=== PATIENT | male | born 1990 | race Caucasian/White ===

== ENCOUNTER 2017-12-04 10:22 | Emergency (ER) | payer OTHER ==
[2017-12-04 10:32] VITALS: BP 172/93
--- NOTE | 2017-12-04 10:37 | ER Document Report ---
HPI - HPI Patient complains to provider of: back pain Onset: Other - april 2017 Pain Level: 4 Context: 27 yo [employer] with chronic back pain since herniated disc L4-5, 2 surgeries by [facility] surgeon. He said he couldnt do anymore. sent to [place] for eval. due for surgery but sent to Dr Dang for 2nd opinion. was taking percocet 5mg #120 per month through October by [facility] surgeon. Dr dang prescribed Ultram which helped some. Pain radiates into left leg but no saddle anesthesia and able to walk. States he is NOT in withdrawal. Associated Symptoms: None Exacerbated by: Denies Relieved by: Denies - ROS ROS below otherwise negative: Yes Systems Reviewed and Negative: Yes All other systems reviewed and negative Past Medical History - General Information source: Patient - Social History Smoking Status: Unknown if Ever Smoked Frequency of alcohol use: None Drug Abuse: None Lives with: Family Family History: Reviewed & Not Pertinent - Medical History Medical History: Negative Surgical Hx: Negative Vertical Provider Document - CONSTITUTIONAL Agree With Documented VS: Yes Exam Limitations: No Limitations General Appearance: No Apparent Distress - INFECTION CONTROL TRAVEL OUTSIDE OF THE [place]. IN LAST 30 DAYS: No - BACK Back: Normal Inspection - MUSCULOSKELETAL/EXTREMETIES Musculoskeletal/Extremeties: MAEWAILYN - NEURO Level of Consciousness: Awake Motor/Sensory: No Motor Deficit, No Sensory Deficit Deep Tendon Reflexes: 2+ - brie ankle and patellar - DERM Integumentary: No Rash Course - Re-evaluation Re-evalutation: 12/04/17 11:05 I explained to the patient that he needs to establish with primary care for his pain medication., [facility] does not treat chronic back pain. He is active duty [employer]. He is scheduled for a fusion in [place]. He saw Dr. Dang the neurosurgeon here in [place] on November 18 for a second opinion. He was taking oxycodone up until November 05 he was given 60 by the neurosurgeon in [place]. He has had [address] Allen in [place] but is not going back to him anymore. The [place] controlled substance website showed that he was getting 60 oxycodone every week in September which was a second surgery, and 120 oxycodone in October. - Vital Signs Vital signs: Temp Pulse Resp BP Pulse Ox 98.4 F 108 H 16 172/93 H 98 12/04/17 10:28 12/04/17 10:28 12/04/17 10:28 12/04/17 10:28 12/04/17 10:28 Discharge - Discharge Clinical Impression: Chronic back pain Qualifiers: Back pain location: low back pain Back pain laterality: midline Sciatica presence: with sciatica Sciatica laterality: sciatica of left side Qualified Code(s): M54.42 - Lumbago with sciatica, left side Condition: Good Disposition: HOME, SELF-CARE Instructions: Chronic Back Pain ([facility]), Ultram ([facility]) Additional Instructions: See your sick call or someone within the system for continue pain medication. Return to the emergency room if you have any numbness or tingling in your groin or inability to walk. Prescriptions: Tramadol HCl [Ultram 50 mg Tablet] 50 mg PO ASDIR PRN #20 tablet PRN Reason: Forms: Return to Work
== END 2017-12-04 11:43 | disposition home or self-care (01) ==
LOC: ER 10:22
DX: G89.29 Other chronic pain (principal); M54.42 Lumbago with sciatica, left side; Z98.890 Other specified postprocedural states
CPT/HCPCS: 99283

== ENCOUNTER 2018-06-02 07:12 | Emergency (ER) | payer OTHER ==
[2018-06-02] MEDS ORDERED: THIAMINE HCL 100 MG, FOLIC ACID 1 MG in NORMAL SALINE 250 ML IV ONE (07:36)
[2018-06-02] MEDS ORDERED: ONDANSETRON HCL INJ/PF 4 MG/2 ML SDV IV ONE (07:36)
[2018-06-02 07:47] LABS: APPEARANCE,URINE CLOUDY; BILIRUBIN,URINE NEGATIVE (NEGATIVE); COLOR,URINE DARK YELLOW; GLUCOSE, URINE NEGATIVE (NEGATIVE); KETONES,URINE TRACE mg/dL (NEGATIVE); LEUKOCYTE ESTERASE,URINE NEGATIVE (NEGATIVE); NITRITE,URINE NEGATIVE (NEGATIVE); PROTEIN,URINE 100 mg/dL (NEGATIVE)
--- NOTE | 2018-06-02 07:58 | ER Document Report ---
ED General <ADAM SUTTON - Last Filed: 06/02/18 11:23> - General TRAVEL OUTSIDE OF THE U.[place]. IN LAST 30 DAYS: No <ODETTE HUMMEL - Last Filed: 06/02/18 11:30> - General Chief Complaint: Alcohol Withdrawl Stated Complaint: VOMITING Time Seen by Provider: 06/02/18 07:39 - HPI Notes: Patient is a 27-year-old male with a history of hypertension and alcohol abuse who presents to the ED requesting help with withdrawal symptoms and detoxing from alcohol. Patient states that his last drink was yesterday evening which included 2 shots and 4 beers. Patient states that he is very motivated to stop drinking and stemming from a back surgery when he was in pain and became depressed. He has never had any SI/HI. Patient states that over the last few days he has had abdominal cramping, nausea, vomiting, and diarrhea associated as he has had a decreased intake of his alcohol. He has also felt flushed and fidgety. Patient states that he is already contacted in AA clinic as well, but has not been eating or drinking much over the last few days which is what brought him to the emergency department. Patient states that he wants to be done with alcohol and states that he is not intoxicated at this time. Patient states that after retching hard several times, he noticed just a scant amount of blood-tinged in the emesis, but no copious amounts of blood and no melena or hematochezia. Patient states his abdominal pain comes and goes, but is usually generalized and does not radiate. Denies drug allergies. Patient states that he does not smoke. Denies any other drug abuse. No history of seizures. Denies any headache, fever, head injury, neck pain, changes in vision/speech/mentation/hearing, URI, sore throat, chest pain, palpitations, syncope, cough, shortness of breath, wheeze, dyspnea, urinary retention, dysuria, hematuria, loss of control of bowel or bladder, numbness/tingling, saddle anesthesia, muscle paralysis/weakness, or rash. (ODETTE HUMMEL) - Related Data Allergies/Adverse Reactions: No Known Allergies Allergy (Verified 06/02/18 07:23) Past Medical History - Social History Smoking Status: Never Smoker Family History: Reviewed & Not Pertinent Renal/ Medical History: Denies: Hx Peritoneal Dialysis Past Surgical History: Reports: Hx Orthopedic Surgery - back <ODETTE HUMMEL - Last Filed: 06/02/18 11:30> Review of Systems - Review of Systems -: Yes All other systems reviewed and negative <ODETTE HUMMEL - Last Filed: 06/02/18 11:30> Physical Exam <ODETTE HUMMEL - Last Filed: 06/02/18 11:30> - Vital signs Vitals: Temp Pulse Resp BP Pulse Ox 98.1 F 77 16 154/97 H 97 06/02/18 07:23 06/02/18 07:23 06/02/18 07:23 06/02/18 07:23 06/02/18 07:23 - Notes Notes: PHYSICAL EXAMINATION: GENERAL: Well-appearing, well-nourished and in no acute distress. A&Ox4. Answers questions appropriately. HEAD: Atraumatic, normocephalic. EYES: Pupils equal round and reactive to light, extraocular movements intact, sclera anicteric, conjunctiva are normal. No nystagmus. ENT: EAC clear b/l. TM's intact b/l without erythema, fluid, or perforation. Nares patent and without discharge. oropharynx clear without exudates. No tonsilar hypertrophy or erythema. Moist mucous membranes. No sinus tenderness. NECK: Normal range of motion, supple without lymphadenopathy LUNGS: LLL mild wheeze, clear b/l otherwise. HEART: Regular rate and rhythm without murmurs, rubs, gallops. ABDOMEN: Soft, nontender, nondistended abdomen. No guarding, no rebound. No masses appreciated. Normal bowel sounds present. No CVA tenderness bilaterally. Musculoskeletal: FROM to passive/active. Strength 5+/5. Extremities: No cyanosis, clubbing, or edema b/l. Peripheral pulses 2+. Capillary refill less than 3 seconds. NEUROLOGICAL: Cranial nerves grossly intact. Normal speech, normal gait. Normal sensory, motor exams PSYCH: doesn't want to sit still SKIN: Warm, Dry, normal turgor, no rashes or lesions noted. (ODETTE HUMMEL) Course - Laboratory Result Diagrams: 06/02/18 08:14 06/02/18 08:14 <ADAM SUTTON - Last Filed: 06/02/18 11:23> - Laboratory Result Diagrams: 06/02/18 08:14 06/02/18 08:14 <ODETTE HUMMEL - Last Filed: 06/02/18 11:30> - Re-evaluation Re-evalutation: 06/02/18 07:58 Patient does seem very motivated to want to quit drinking and is come for here for help in doing so. We will provide fluids, check labs/imaging, give thiamine/folic acid and a small dose of Ativan. I will have our psychology team speak with him about resources as well. Patient is agreeable to this plan thus far. 06/02/18 11:25 Patient is an afebrile, well-hydrated, 27-year-old male who presents to the ED for 'mild' alcohol withdrawal symptoms with calc score of 13. Vitals are acceptable without any significant tachycardia, tachypnea, or hypoxia. PE is otherwise unremarkable for any focal neurological deficits. CBC, CMP, lipase, u rinalysis, urine drug screen, chest x-ray were all unremarkable for any acute pathology. Patient states that he is feeling much better after the medicines and fluids. Patient is alert and oriented without any gait instability and appears to be of sound mind. No SI/HI. Patient does not have any presentation of acute intoxication. Our psychology team has evaluated the patient and resources were reviewed and provided. No further labs or imaging warranted. Patient is nontoxic-appearing and is tolerating p.o. without difficulty. Low suspicion/risk for encephalitis, esophageal varices, significant ascites, acute appendicitis, bowel obstruction, acute cholecystitis, perforated diverticulitis, incarcerated hernia, pancreatitis, perforated ulcer, peritonitis, sepsis, testicular torsion, or other systemic emergent condition at this time. Patient is aware that his condition can change from initial presentation and he needs to monitor symptoms closely and seek medical attention if any acute changes. I will send him home with a prescription for Zofran, Librium, and clonidine but just enough to get him through 3 days in case he cannot get an appointment right away which should not be a problem as [place] Conservative measures otherwise for symptoms. Recheck with PCM in 3-5 days. Patient is active duty and I thoroughly reviewed [facility] with the [place] They are currently [place] today, but the emergency department does have an on-call provider that can help set up an appointment if he needs assistance; otherwise, he can follow up and check himself involuntarily tomorrow morning. Patient has agreed that he will be checking in tomorrow morning and will notify his command at that time. Patient states that he feels well enough to hold out today and does have a roommate that does not drink that will keep him accountable. He does have a ride to go home today. Return to the ED with any worsening/concerning symptoms otherwise as reviewed in discharge. Patient is in agreement. (ODETTE HUMMEL) - Vital Signs Vital signs: Temp Pulse Resp BP Pulse Ox 98.1 F 77 16 154/97 H 97 06/02/18 07:23 06/02/18 07:23 06/02/18 07:23 06/02/18 07:23 06/02/18 07:23 - Laboratory Laboratory results interpreted by me: 06/02/18 06/02/18 06/02/18 07:20 08:14 08:14 RDW 15.5 H Direct Bilirubin 0.6 H AST 62 H Total Protein 8.7 H Albumin 5.3 H Urine Protein 100 H Urine Ketones TRACE H Urine Urobilinogen 2.0 H Discharge <ADAM SUTTON - Last Filed: 06/02/18 11:23> <ODETTE HUMMEL - Last Filed: 06/02/18 11:30> - Discharge Clinical Impression: Alcohol withdrawal Qualifiers: Complication of substance-induced condition: uncomplicated Qualified Code(s): F10.230 - Alcohol dependence with withdrawal, uncomplicated Condition: Stable Disposition: HOME, SELF-CARE Instructions: Alcohol Withdrawl ([facility]), Benzodiazepines ([facility]) Additional Instructions: Maintain adequate fluid and food intake [place] diet ([employer] Bananas, rice, apples, toast, etc Medicines as directed and avoid alcohol intake tylenol if needed Monitor for any worsening symptoms Make sure you are staying hydrated enough to urinate and have normal BM's Recheck with your PCM in 3-5 days Schedule an appointment with an outpatient detox facility and utilize resources as reviewed by our psychology team Return to the ED with any worsening symptoms and/or development of fever, headache, changes in behavior/mentation/vision/speech, chest pain, palpitations, syncope, shortness of breath, trouble breathing, abdominal pain, n/v/d, blood in stool/urine, loss of control of bowel/bladder, urinary retention, muscle weakness/paralysis, seizure, or other worsening symptoms that are concerning to you. Prescriptions: Chlordiazepoxide HCl [Librium 25 mg Capsule] 1 cap PO TID #9 capsule Clonidine HCl [Catapres 0.1 mg Tablet] 0.1 mg PO TID #9 tablet Ondansetron [Zofran Odt 4 mg Tablet] 1 - 2 tab PO Q4H PRN #15 tab.rapdis PRN Reason: For Nausea/Vomiting Forms: Elevated Blood Pressure Referrals: [facility] [Provider Group] - Follow up as needed [facility] [Provider Group] - Follow up as needed [facility] [Other] - Follow up tomorrow
[2018-06-02] MEDS ORDERED: LORAZEPAM INJ 2 MG/1 ML VIAL IV ONE ×2 (08:03→11:02)
[2018-06-02] MEDS: NORMAL SALINE 1000 ML 1,000 ML IV PRN ×2 (08:21→09:21)
[2018-06-02 08:22] LABS: ABSOLUTE BASOPHILS # (AUTO) 0.1 10^3/uL (0.0-0.2); ABSOLUTE EOSINOPHILS # (AUTO) 0.1 10^3/uL (0.0-0.6); ABSOLUTE LYMPHOCYTES (AUTO) 1.5 10^3/uL (0.5-4.7); ABSOLUTE MONOCYTES (AUTO) 0.7 10^3/uL (0.1-1.4); ABSOLUTE NEUT (AUTO) 4.1 10^3/uL (1.7-8.2); BASOPHILS % (AUTO) 0.8 % (0-2); EOSINOPHILS % (AUTO) 1.3 % (0-6); HEMATOCRIT 46.5 % (37.9-51.0); HEMOGLOBIN 16.5 g/dL (13.5-17.0); MEAN CORPUSCULAR HEMOGLOBIN 31.9 pg (27.0-33.4); MEAN CORPUSCULAR HGB CONC 35.5 g/dL (32.0-36.0); MEAN CORPUSCULAR VOLUME 90 fl (80-97); MONOCYTES % (AUTO) 10.5 % (3-13); PLATELET COUNT 216 10^3/uL (150-450); RED BLOOD COUNT 5.18 10^6/uL (4.35-5.55); RED CELL DISTRIBUTION WIDTH 15.5 % (11.5-14.0); SEGMENTED NEUTROPHILS % (AUTO) 64.4 % (42-78); TOTAL CELLS COUNTED % (AUTO) 100 %; WHITE BLOOD COUNT 6.4 10^3/uL (4.0-10.5)
[2018-06-02] MEDS ORDERED: THIAMINE HCL INJ 200 MG/2 ML VIAL ONE (08:31)
[2018-06-02 08:33] LABS: ALANINE AMINOTRANSFERASE 63 U/L (21-72); ALBUMIN 5.3 g/dL (3.5-5.0); ALKALINE PHOSPHATASE 104 U/L (38-126); ANION GAP 13 (5-19); ASPARTATE AMINO TRANSFERASE 62 U/L (17-59); BILIRUBIN,DIRECT 0.6 mg/dL (0.0-0.4); BILIRUBIN,TOTAL 1.2 mg/dL (0.2-1.3); BLOOD UREA NITROGEN 15 mg/dL (7-20); CALCIUM 10.1 mg/dL (8.4-10.2); CARBON DIOXIDE 25 mmol/L (22-30); CHLORIDE 102 mmol/L (98-107); GLUCOSE 91 mg/dL (75-110); LIPASE 125.7 U/L (23-300); POTASSIUM 4.6 mmol/L (3.6-5.0); SODIUM 139.6 mmol/L (137-145); TOTAL PROTEIN 8.7 g/dL (6.3-8.2)
--- NOTE | 2018-06-02 08:33 | RADIOLOGY REPORT (SQ) ---
EXAM DESCRIPTION: CHEST 2 VIEWS COMPLETED DATE/TIME: 06/02/2018 8:25 am REASON FOR STUDY: LLL wheeze COMPARISON: None. EXAM PARAMETERS: NUMBER OF VIEWS: two views TECHNIQUE: Digital Frontal and Lateral radiographic views of the chest acquired. RADIATION DOSE: NA LIMITATIONS: none FINDINGS: LUNGS AND PLEURA: No opacities, masses or pneumothorax. No pleural effusion. MEDIASTINUM AND HILAR STRUCTURES: No masses or contour abnormalities. HEART AND VASCULAR STRUCTURES: Heart normal size. No evidence for failure. BONES: No acute findings. HARDWARE: None in the chest. OTHER: No other significant finding. IMPRESSION: NO ACUTE RADIOGRAPHIC FINDING IN THE CHEST. TECHNICAL DOCUMENTATION: JOB ID: [id number] [employer]- All Rights Reserved Reading location - IP/workstation name: [email or web address]
[2018-06-02 09:03] LABS: URINE AMPHETAMINES SCREEN NEGATIVE; URINE BARBITURATES SCREEN NEGATIVE; URINE BENZODIAZEPINES SCREEN NEGATIVE; URINE COCAINE SCREEN NEGATIVE; URINE MARIJUANA (THC) SCREEN NEGATIVE; URINE METHADONE SCREEN NEGATIVE; URINE PHENCYCLIDINE SCREEN NEGATIVE
--- NOTE | 2018-06-02 11:23 | PSYCHOLOGICAL NOTE ---
Psych Note - Psych Note Date seen by psych provider: 06/02/18 Time seen by psych provider: 10:02 Psych Note: Reason for Consult: detox Patient reports he came to [facility] ED because of withdrawal symptoms. He reports that he has been drinking heavily for approximately 1 year however is unable at this time to go inpatient detox because he is active duty. He reports that he is already reached out to a local AA group and plans on continuing with meetings. He was wondering if there is any additional resources available. Clinician discussed using [facility] resources in addition to community resources. He disclosed that he did not know he was able to just walk into [facility] [place]. Patient is alert and orientated to person, place, time and circumstance. Mood is euthymic with congruent affect. Patient denies suicidal and homicidal ideation. Delusions are absent behaviors congruent with an intact reality based presentation i.e. organized and the other thought process. Eye contact is well- maintained. Conversational speech is within normal rate, tone and prosody. Intellectual abilities appear to be within the average range. Attention and concentration were good. Insight, judgment, impulse control are currently good. No medication recommendations at this time 291.81 (F10.239) alcohol withdrawal without perceptual disturbance Impression\plan: Patient is cleared from acute psychiatric services. Patient does not meet IVC criteria per [place] GS 120 2C. Patient is requesting resources for the local area to assist with sobriety. He reports he is not interested in inpatient detox and discloses he has not drink for approximately 3 days. Frieda neff is currently active duty. Clinician provided psychoeducation on using resources available for both on and off based. Patient has already attended 1 AA meeting and plans to continue attending. Patient was provided local resource list in the community which includes mobile crisis contact information. Dr. Ellis was consulted and the care management this patient; attending physicians in agreement with recommendations and disposition.
[2018-06-02 11:46] VITALS: BP 152/101
== END 2018-06-02 11:46 | disposition home or self-care (01) ==
LOC: ER 07:12
DX: F10.230 Alcohol dependence with withdrawal, uncomplicated (principal); I10 Essential (primary) hypertension
CPT/HCPCS: 99285; 96360; 96361; 36415; 83690; 85025; 80053; 81001; 80307; 71046; J3490; J2060; J3411; J2405; J7030; J7050